=== PATIENT | female | born 1955 | race Native Hawaiian/Other Pacific Islander ===

== ENCOUNTER 2017-09-28 09:36 | Inpatient (IN) | payer BC ==
[~2017-09-28] VITALS: Ht 152.4 cm; Wt 57.6 kg
[2017-09-28] MEDS ORDERED: ONDANSETRON 4 MG/2 ML VIAL ONE (09:50)
[2017-09-28] MEDS ORDERED: PANTOPRAZOLE SODIUM IV 40 MG in IV DEXTROSE 5% 100 ML IV ONE ×2 (09:56→11:45)
[2017-09-28] MEDS ORDERED: IV NS 1000 ML 1,000 ML IV ONE (10:00)
[2017-09-28] MEDS ORDERED: PANTOPRAZOLE SODIUM 40 MG VIAL ONE (10:03)
[2017-09-28] MEDS ORDERED: MORPHINE SULFATE 2 MG/1 ML DISP.SYRIN IV ONE (10:04)
[2017-09-28] MEDS ORDERED: IOHEXOL 300MG/ML 100 ML INFUS..BTL ONE (10:07)
[2017-09-28] MEDS ORDERED: SWABABLE VALVE TRANSFER SET EA MC ONE (10:07)
[2017-09-28] MEDS ORDERED: IV NORMAL SALINE 250 ML IV ONE (10:07)
[2017-09-28] MEDS ORDERED: MORPHINE SULFATE 2 MG/1 ML DISP.SYRIN ONE ×2 (10:09→13:01)
[2017-09-28 10:15] LABS: BASOPHILS % (AUTO) 0.3 % (0.0-2.0); HEMATOCRIT 40.2 % (31.2-41.9); HEMOGLOBIN 13.8 g/dL (10.9-14.3); LYMPHOCYTES # (AUTO) 0.9 K/uL (20.0-40.0); MEAN CORPUSCULAR HEMOGLOBIN 30.2 uug (24.7-32.8); MEAN CORPUSCULAR HGB CONC 34 g/dL (32.3-35.6); MEAN CORPUSCULAR VOLUME 88.3 fL (75.5-95.3); MONOCYTES # (AUTO) 0.7 K/uL (2.0-10.0); MONOCYTES % (AUTO) 5.9 % (0.0-11.0); NEUTROPHILS % (AUTO) 85.8 % (38.5-71.5); PLATELET COUNT (AUTO) 212 K/uL (179-408); RED BLOOD CELL COUNT(AUTO) 4.55 MIL/uL (3.63-4.92); WHITE BLOOD COUNT (AUTO) 11.7 K/uL (3.8-11.8)
[2017-09-28] MEDS ORDERED: ONDANSETRON IV *ER 4 MG/2 ML VIAL IV ONE (10:15)
[2017-09-28 10:24] LABS: CREATININE 1.3 mg/dL (0.6-1.3); POTASSIUM 3.2 mmol/L (3.5-5.1)
[2017-09-28 10:30] LABS: BILIRUBIN,TOTAL 1.6 mg/dL (0.2-1.0); TOTAL PROTEIN, SERUM 7.5 g/dL (6.4-8.2)
[2017-09-28 11:29] LABS: *BILIRUBIN,URIN NEGATIVE (NEGATIVE); *BLOOD, URINE Trace-intact (NEGATIVE); *CLARITY,URINE CLEAR (CLEAR); *COLOR,URINE YELLOW (YELLOW); *KETONES,URINE 2+ (NEGATIVE); *PROTEIN,URINE NEGATIVE (NEGATIVE); *UROBILINOGEN,URINE 0.2 E.U./dl (NORMAL); LEUKOCYTE ESTERASE ,URINE NEGATIVE (NEGATIVE); NITRITE, URINE NEGATIVE (NEGATIVE); UGLUCOSE NEGATIVE (NEGATIVE)
[2017-09-28] MEDS ORDERED: HYDR25TA4 PO (11:36)
[2017-09-28] MEDS ORDERED: MELO-107 PO (11:36)
[2017-09-28] MEDS ORDERED: ATOR10TA PO (11:36)
[2017-09-28] MEDS ORDERED: METF500T6 PO (11:36)
[2017-09-28] MEDS ORDERED: CHOL200078 PO (11:36)
[2017-09-28] MEDS ORDERED: RANI150T43 PO (11:36)
[2017-09-28 11:44] LABS: RBC,URINE 0-3 /HPF (0-3); WBC,URINE 0-3 /HPF (0-3)
[2017-09-28 11:45] LABS: BACTERIA,URINE FEW /HPF (NONE SEEN); SQUAMOUS EPITHELIAL CELL,UR FEW /HPF (NONE SEEN)
[2017-09-28] MEDS ORDERED: Z GUARD REMEDY PASTE 57 GM TUBE TOP PRN (11:45)
[2017-09-28] MEDS ORDERED: ONDANSETRON 4 MG/2 ML VIAL IV PRN (11:45)
[2017-09-28] MEDS ORDERED: IV NS 1000 ML 1,000 ML IV PRN (11:45)
[2017-09-28] MEDS ORDERED: HYDROCODONE/APAP 5-325MG TABLET PO PRN (11:45)
[2017-09-28] MEDS ORDERED: DEXTROSE 50% 50 ML DISP.SYRIN IV PRN (11:45)
[2017-09-28] MEDS ORDERED: MORPHINE SULFATE 2 MG/1 ML DISP.SYRIN IV PRN (11:45)
[2017-09-28] MEDS ORDERED: MAGNESIUM HYDROXIDE 30 ML LIQUID UDC PO PRN (11:45)
[2017-09-28] MEDS ORDERED: ACETAMINOPHEN 325 MG TABLET PO PRN (11:45)
[2017-09-28] MEDS ORDERED: INSULIN REGULAR, HUMAN 300 UNITS/3 ML VIAL SQ PRN (11:45)
[2017-09-28] MEDS: POTASSIUM CHLORIDE 50 ML IV SCH ×4 (11:54→14:49)
--- NOTE | 2017-09-28 12:43 | NUR ---
1ST BAG OF POTASSIUM STARTED, 3 more bags to go, endorsed to nurse Santana of 2nd floor. Pt. admitted to telemetry room 222 , under care of Dr. Michael. Dr Nina notified. Belongings List completed.
--- NOTE | 2017-09-28 12:59 | NUR ---
2nd bag of potassium IVPB infusing , endorsed to nurse Santana accordingly.
--- NOTE | 2017-09-28 13:10 | NUR ---
X-ray was called re: bowel follow through
[2017-09-28] MEDS ORDERED: DIATR MEGLU/DIATRIZOATE SODIUM 120 ML BOTTLE ONE (13:14)
--- NOTE | 2017-09-28 13:15 | NUR ---
RECEIVED PATIENT FROM ER [facility]IA [facility]. REPORT RECEIVED PRIOR FROM LESTER HENNESSY. ADMITTED TO ROOM 222. PATIENT AAOX4 NO ACUTE DISTRESS NOTED. NGT IN PLACE. IV ACCESS ON THE LEFT AC #20 CURRENTLY RUNNING NS @150 CC AND POTASSIUM IV 10MEQ AT 50CC/HR, INFUSING WELL. ADMISSION ASSESSMENTS TO BE DONE. PATIENT ORIENTED TO ROOM AND UNIT. CALL LIGHT WIHTIN REACH WILL CONTINUE TO MONITOR CLOSELY.
[2017-09-28 13:20] VITALS: BP 130/77
[2017-09-28 16:00] VITALS: BP 127/76
[2017-09-28] MEDS: BLOOD SUGAR DIAGNOSTIC 1 EACH STRIP VI SCH ×2 (16:43→20:24)
[2017-09-28] MEDS: INSULIN REGULAR, HUMAN 300 UNIT/3 ML VIAL SQ PRN (16:45)
[2017-09-28] MEDS: IV D5 1/2 NS 1000 ML 1,000 ML IV PRN ×2 (18:05→18:09)
--- NOTE | 2017-09-28 18:32 | NUR ---
END OF SHIFT NOTED. PATIENT IN ROOM, STABLE CONDITION. NGT STILL IN PLACE. IV ACCESS ON THE LEFT AC #20 INTACT AND PATENT RUNNING D5 1/2 NS @ 75 CC/HR. PATIENT COMPLAINING OF LOOSE STOOLS, POSS DUE TO DYE USED DURING BOWEL FOLLOW THROUGH XRAY. PATIENT STILL ON NPO, DENIES NAUSEA AND VOMITING. DENIES ABD PAIN AT THIS TIME. WILL CONTINUE TO MONITOR CLOSELY
--- NOTE | 2017-09-28 19:30 | NUR ---
Patient is alert, awake, & currently in the bathroom at the start of shift. No acute distress noted. Pertinent assessment completed. Vital signs within range at start of shift. Noted with Left AC IV 18G running with D5 1/2 NS at 75cc/hr. NO s/s of infiltration or swelling noted at IV site. Patient currently has an NG tube at low intermittent suctioning. Patient denies pain & n/v at start of shift. Patient claiming that she has been having constant diarrhea d/t the NG tube dye received today for small bowel X ray. Normal Sinus on the tele monitor. Call light within reach. Will continue to monitor through shift.
[2017-09-28 20:04] VITALS: BP 131/65
[2017-09-29] VITALS: BP 109/54
[2017-09-29 04:00] VITALS: BP 110/54
[2017-09-29 06:17] LABS: BASOPHILS % (AUTO) 0.3 % (0.0-2.0); EOSINOPHILS % (AUTO) 0.6 % (0.0-7.0); HEMATOCRIT 34.4 % (31.2-41.9); HEMOGLOBIN 11.9 g/dL (10.9-14.3); LYMPHOCYTES # (AUTO) 1.8 K/uL (20.0-40.0); LYMPHOCYTES % (AUTO) 30.6 % (20.5-51.5); MEAN CORPUSCULAR HEMOGLOBIN 30.9 uug (24.7-32.8); MEAN CORPUSCULAR HGB CONC 35 g/dL (32.3-35.6); MEAN CORPUSCULAR VOLUME 89.4 fL (75.5-95.3); MONOCYTES # (AUTO) 0.6 K/uL (2.0-10.0); MONOCYTES % (AUTO) 9.7 % (0.0-11.0); NEUTROPHILS # (AUTO) 3.5 K/uL (1.8-8.9); NEUTROPHILS % (AUTO) 58.8 % (38.5-71.5); PLATELET COUNT (AUTO) 175 K/uL (179-408); RED BLOOD CELL COUNT(AUTO) 3.85 MIL/uL (3.63-4.92)
[2017-09-29] MEDS: BLOOD SUGAR DIAGNOSTIC 1 EACH STRIP VI SCH ×4 (06:30→20:08)
[2017-09-29] MEDS: INSULIN REGULAR, HUMAN 300 UNIT/3 ML VIAL SQ PRN ×2 (06:32→17:13)
--- NOTE | 2017-09-29 06:35 | NUR ---
Patient stable through shift. No acute distress noted. Vital signs within range. No signs of hypo/hyperglycemia noted. Blood sugar this AM is 141. Administered 2 units of insulin per MD order. Compliant with care. All needs attended to promptly. No complaints of pain & sob. NG tube kept at low intermittent suctioning. Patient kept NPO. Safety measures maintained. Call light in reach. Will endorse to day shift RN.
[2017-09-29 06:45] LABS: BILIRUBIN,DIRECT 0.2 mg/dL (0.0-0.2); BILIRUBIN,TOTAL 1.2 mg/dL (0.2-1.0); CREATININE 0.8 mg/dL (0.6-1.3); PHOSPHOROUS 3.4 mg/dL (2.5-4.9); TOTAL PROTEIN, SERUM 6.5 g/dL (6.4-8.2)
--- NOTE | 2017-09-29 07:00 | NUR ---
RECEIVED PATIENT ON BED ASLEEP. AAOX4 NO ACUTE DISTRESS NOTED. NGT IN PLACE ON LOW INTERMITTENT SUCTION. IV ACCESS ON THE LEFT AC #20 CURRENTLY RUNNING D5 1/2 NS @ 75CC/HR, INFUSING WELL. 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 NO COMPLAINTS OF PAIN/DISCOMFORT AT THIS TIME. COMFORT MEASURES PROVIDED. CALL LIGHT WITHIN REACH. WILL CONTINUE TO MONITOR CLOSELY.
[2017-09-29] MEDS ORDERED: PANTOPRAZOLE SODIUM 40 MG VIAL IV SCH (09:00)
[2017-09-29] MEDS: IV D5 1/2 NS 1000 ML 1,000 ML IV PRN (10:23)
[2017-09-29] MEDS: POTASSIUM CHLORIDE 50 ML IV SCH ×6 (11:13→15:47)
[2017-09-29 11:15] VITALS: BP 122/57
--- NOTE | 2017-09-29 14:00 | NUR ---
SEEN AND EXAMINED BY DR. SANTOS. W/ ORDERS TO DC NGT AND START ON CLEAR LIQUIDS, AND TO ADVANCE DIET TOLERATED. WILL CONTINUE TO MONITOR
[2017-09-29] MEDS ORDERED: MELO-105 PO (14:52)
[2017-09-29 15:30] VITALS: BP 121/64
--- NOTE | 2017-09-29 20:17 | NUR ---
Received patient in stable condition with no acute distress. New order from MD Michael to discharge patient. Patient cleared by GI per day shift RN for discharge. Vitals stable at discharge. Discharge instructions given to patient. Blood sugar at d/c 106 with no coverage needed. Patient to go home with . Will accompany patient to car.
[2017-09-29] MEDS ORDERED: FAMOTIDINE 20 MG TABLET PO SCH (21:00)
[2017-09-30] MEDS ORDERED: CHOLECALCIFEROL 1,000 UNIT TABLET PO SCH (09:00)
[2017-09-30] MEDS ORDERED: HYDROCHLOROTHIAZIDE 25 MG TABLET PO SCH (09:00)
[2017-09-30] MEDS ORDERED: MELOXICAM 7.5 MG TABLET PO SCH (09:00)
[2017-09-30] MEDS ORDERED: METFORMIN HCL 500 MG TABLET PO SCH (18:00)
[2017-09-30] MEDS ORDERED: ATORVASTATIN 10 MG TABLET PO SCH (18:00)
== END 2017-09-29 20:30 | disposition home or self-care (01) | DRG 389 ==
LOC: ER 09:36 → TELE 12:56 → MED 09-29 14:40
PROVIDERS: ADMIT Internal Medicine; ATTEND Internal Medicine
PROC: 0D9670Z Drainage of Stomach with Drainage Device, Via Natural or Artificial Opening (ICD-10-PCS; principal; 2017-09-28)
DX: K56.51 Intestinal adhesions [bands], with partial obstruction (principal); E87.2 Acidosis; Z90.710 Acquired absence of both cervix and uterus; K21.9 Gastro-esophageal reflux disease without esophagitis; E78.5 Hyperlipidemia, unspecified; K43.2 Incisional hernia without obstruction or gangrene; E11.9 Type 2 diabetes mellitus without complications; E87.6 Hypokalemia; I10 Essential (primary) hypertension; D72.829 Elevated white blood cell count, unspecified
CPT/HCPCS: 36415; 70030-TC; 71045; 74018; 74250; 83605; 83690; 83735; 84100; 85025; 85610; 93005; A4663; C9113; J1815; J2270; J2405; J3480; J3490; J7030; J7050; Q9963; Q9967